=== PATIENT | male | born 1935 ===

== ENCOUNTER 2017-04-28 11:23 | Emergency (ER) | payer OTHER ==
[2017-04-28 11:40] VITALS: TEMP 97.8
[2017-04-28] MEDS ORDERED: SODIUM CHLORIDE 0.9% 1000ML 1,000 ML IV ONE (12:05)
[2017-04-28] MEDS ORDERED: ONDANSETRON HCL 4 MG/2 ML SOL IV ONE (12:05)
[2017-04-28] MEDS ORDERED: PANTOPRAZOLE SODIUM 40 MG/10 ML PDS IV ONE (12:05)
[2017-04-28] MEDS ORDERED: ONDANSETRON HCL 4 MG/2 ML SOL ONE (12:08)
[2017-04-28] MEDS ORDERED: PANTOPRAZOLE SODIUM 40 MG/10 ML PDS ONE (12:08)
[2017-04-28 12:15] LABS: BASOPHILS % (AUTO) 1 % (0-3); EOSINOPHILS % (AUTO) 0 % (0-9); HEMATOCRIT 40 % (39-53); MEAN CORPUSCULAR HGB CONC 33.1 gm/dl (32.0-36.0); MEAN CORPUSCULAR VOLUME 84 fL (80-100); MONOCYTES % (AUTO) 7.2 % (0-12); NEUTROPHILS % (AUTO) 73.7 % (37-80)
[2017-04-28 12:50] LABS: ALBUMIN 3.6 gm/dl (3.4-5.0); CALCIUM 9.5 mg/dl (8.5-10.1); POTASSIUM 4.9 mMol/L (3.5-5.1)
[2017-04-28 13:07] VITALS: BP 123/68; PULSE 101; RESP 18; O2SAT 100
== END 2017-04-28 13:40 | disposition home or self-care (01) | DRG 641 ==
LOC: ED 11:23
DX: E86.0 Dehydration (principal); R11.2 Nausea with vomiting, unspecified
CPT/HCPCS: 36415; 80053; 85025; 99285; J2405